=== PATIENT | male | born 1965 | race Caucasian/White ===

== ENCOUNTER 2020-02-24 16:05 | Inpatient (IN) ==
[2020-02-24] MEDS ORDERED: oxyCODONE/Acetamin 5/325 mg TAB PO ONE (16:15)
[2020-02-24] MEDS ORDERED: Ondansetron 4 mg VIAL 2 MG/ML 2 ml VIAL IV PRN (19:14)
[2020-02-24] MEDS ORDERED: diPHENhydraMINE IV 50 MG/ML 1 ml VIAL (BENADRYL) IV PRN (19:14)
[2020-02-24] MEDS: Lactated Ringers 1000 ml BAG 1,000 ML IV SCH (20:19)
[2020-02-24 20:44] LABS: ABS Eosinophils 0.2 10^3/ul (0-0.6); ABS Monocytes 0.7 10^3/ul (0-0.8); ABS Neutrophils 6.8 10^3/ul (1.5-7.7); Eosinophil % 2.3 %; Hematocrit 36 % (42-52); Lymphocyte % 20.1 %; Mean Corpuscular HGB Conc 34 g/dL (31-36); Mean Corpuscular Hemoglobin 32 pg (27-31); Mean Corpuscular Volume 94 fL (80-94); Mean Platelet Volume 7.4 fL (7.4-10.4); Nucleated Red Blood Cells % 0.1; Platelet Count 297 10^3/uL (150-450); Red Blood Count 3.81 10^6 /uL (4.18-5.48); Red Cell Distribution Width 14 % (10-15); White Blood Count 9.7 10^3/uL (3.5-10.8)
[2020-02-24 20:51] LABS: INR 1.04 (0.82-1.09)
[2020-02-24 20:54] LABS: Albumin/Globulin Ratio 1.3 (1-3); BUN/Creatinine Ratio 20.2 (8-20); Calcium 9.2 mg/dL (8.6-10.3); EGFR African American 115.2 (>60); EGFR Non-African American 95.2 (>60); Globulin 3.1 g/dL (2-4); Potassium 3.9 mmol/L (3.5-5.0); Total Bilirubin 0.4 mg/dL (0.2-1.0); Total Protein 7.1 g/dL (6.4-8.9)
[2020-02-24] MEDS: Enoxaparin 40 MG/0.4 ML SYR SUBCUT SCH (22:26)
[2020-02-25] MEDS: Lactated Ringers 1000 ml BAG 1,000 ML IV SCH (09:12)
[2020-02-25] MEDS: Enoxaparin 40 MG/0.4 ML SYR SUBCUT SCH (21:45)
[2020-02-26] MEDS: Enoxaparin 40 MG/0.4 ML SYR SUBCUT SCH (19:53)
[2020-02-27] MEDS ORDERED: Midazolam 5 mg/5 ml VIAL 1 mg/ml 5 ml VIAL (5 mg) ONE (11:47)
[2020-02-27] MEDS ORDERED: Bupivacaine 0.25% SDV 30 ML ONE (11:52)
[2020-02-27] MEDS ORDERED: Lidocaine 1% MPF 5 ML VIAL ONE (11:54)
[2020-02-27] MEDS ORDERED: ceFAZolin 1 GM ADVAN 1 GM ADDV.VIAL IVPB ONE (12:03)
[2020-02-27] MEDS ORDERED: Propofol 10 MG/ML 20 ML BTL ONE (16:01)
[2020-02-27] MEDS: ceFAZolin 1 GM* X 3 DOSES POST-OP Q8H (AddVan) IVPB SCH (21:11)
[2020-02-28] MEDS: ceFAZolin 1 GM* X 3 DOSES POST-OP Q8H (AddVan) IVPB SCH ×2 (04:27→13:37)
[2020-02-28 08:46] LABS: Calcium 8.4 mg/dL (8.6-10.3); EGFR African American 107.8 (>60); EGFR Non-African American 89.1 (>60); Potassium 4.2 mmol/L (3.5-5.0)
[2020-02-28] MEDS: Enoxaparin 40 MG/0.4 ML SYR SUBCUT SCH (09:12)
[2020-02-29] MEDS: Enoxaparin 40 MG/0.4 ML SYR SUBCUT SCH (09:38)
[2020-02-29 11:03] VITALS: BP 108/54
== END 2020-02-29 15:00 | DRG 313 ==
LOC: ED 16:05 → INTOOBSV 19:15 → SSU 19:15 → OBSVTOIN 19:16 → SSU 22:29
PROVIDERS: ADMIT Physician Assistant; ATTEND Orthopaedic Surgery